=== PATIENT | male | born 1940 | race Caucasian/White ===

== ENCOUNTER 2023-11-03 09:37 | Emergency (ER) | payer MEDICARE ==
[~2023-11-03] VITALS: Ht 170.2 cm; Wt 81.6 kg
[2023-11-03 09:37] VITALS: BP_SYST 165; PULSE 68; RESP 19; TEMP 97.2; O2SAT 100
[2023-11-03] MEDS ORDERED: iohexoL 350 mgI/mL, 100 ML INFUS..BTL IV ONE (09:50)
[2023-11-03 10:22] LABS: BASOPHILS % (AUTO) 0.3 % (0.0-2.0); EOSINOPHILS # (AUTO) 0.2 K/uL (0.0-0.4); EOSINOPHILS % (AUTO) 3.5 % (0.0-4.0); HEMATOCRIT 35.8 % (36-54); HEMOGLOBIN 12.4 g/dL (14.0-18.0); LYMPHOCYTES # (AUTO) 1.5 K/uL (1.0-5.5); LYMPHOCYTES % (AUTO) 26.8 % (20.5-51.5); MEAN CORPUSCULAR HEMOGLOBIN 31 pg (27-31); MEAN CORPUSCULAR HGB CONC 35 % (32-36); MEAN CORPUSCULAR VOLUME 89 fL (79.0-98.0); MONOCYTES # (AUTO) 0.5 K/uL (0.0-1.0); MONOCYTES % (AUTO) 9.4 % (1.7-9.3); NEUTROPHILS # (AUTO) 3.4 K/uL (1.8-7.7); PLATELET COUNT (AUTO) 224 K/uL (130-430); RED BLOOD CELL COUNT(AUTO) 4.03 MIL/uL (4.2-6.2); RED CELL DISTRIBUTION WIDTH 13.8 % (9.0-15.0); WHITE BLOOD COUNT (AUTO) 5.7 K/uL (4.8-10.8)
[2023-11-03 10:42] LABS: INR 1.1 (0.80-1.20); PROTHROMBIN TIME 11.6 SECS (9.5-12.5)
[2023-11-03 10:43] LABS: ANION GAP 7 (5-15); CALCIUM 8.8 mg/dL (8.4-11.0); CARBON DIOXIDE 24 mmol/L (23-29); CHLORIDE 101 mmol/L (98-107); CREATININE 0.86 mg/dL (0.55-1.30); GLUCOSE 161 mg/dL (74-106); SODIUM SERUM 132 mmol/L (136-145); UREA NITROGEN, BLOOD 11 mg/dL (8-21)
[2023-11-03 10:49] LABS: ALANINE AMINOTRANSFERASE 31 U/L (12-78); ALBUMIN 3.4 g/dL (3.4-4.8); ASPARTATE AMINOTRANSFERASE 15 U/L (10-37); BILIRUBIN,DIRECT 0.1 mg/dL (0.0-0.3); CHOLESTEROL 150 mg/dL (<200); HDL CHOLESTEROL 40 mg/dL (>45); LIPASE 43 U/L (16-77); TOTAL BILIRUBIN 0.3 mg/dL (0.0-1.0); TOTAL PROTEIN, SERUM 6.5 g/dL (6.4-8.3); TRIGLYCERIDES 178 mg/dL (30-150)
[2023-11-03] MEDS ORDERED: ASPIRIN 81 MG TAB.CHEW PO ONE (11:00)
[2023-11-03] MEDS ORDERED: ATORVASTATIN 20 MG TABLET PO ONE (11:00)
[2023-11-03] MEDS ORDERED: CLOPIDOGREL BISULFATE 75 MG TABLET PO ONE (11:00)
[2023-11-03 11:57] LABS: COVID19 ANTIGEN SOFIA FIA NEGATIVE (NEGATIVE)
[2023-11-03 11:58] LABS: INFLUENZA TYPE A Negative (NEGATIVE); INFLUENZA TYPE B NEGATIVE (NEGATIVE)
[2023-11-03 12:26] LABS: BILIRUBIN,URINE NEGATIVE (NEGATIVE); BLOOD, URINE NEGATIVE (NEGATIVE); CLARITY/URINE CLEAR (CLEAR); COLOR,URINE YELLOW (YELLOW); GLUCOSE,URINE NEGATIVE (NEGATIVE); KETONES,URINE NEGATIVE (NEGATIVE); LEUKOCYTE ESTERASE ,URINE NEGATIVE (NEGATIVE); NITRITE, URINE NEGATIVE (NEGATIVE); PH,URINE 7.5 (5.0-8.0); PROTEIN URINE NEGATIVE (NEGATIVE); UROBILINOGEN,URINE 0.2 (0.2-1.0)
[2023-11-03 12:46] LABS: BARBITURATE, URINE NEGATIVE (NEG <=200); BENZODIAZEPINE, URINE NEGATIVE (NEG <=150); CANNABINOID, URINE NEGATIVE (NEG <=50); COCAINE, URINE NEGATIVE (NEG <=150); METHAMPHETAMINES SCREEN,URINE NEGATIVE (NEG <=500); OPIATE, URINE NEGATIVE (NEG <=100); PHENCYCLIDINE SCREEN,URINE NEGATIVE (NEG <=25); URINE AMPHETAMINE NEGATIVE (NEG <=500); URINE METHADONE NEGATIVE (NEG <=200); URINE OXYCODONE SCREEN NEGATIVE (NEG <=100)
[2023-11-03 12:47] LABS: UR TRICYCLIC ANTIDEPRESSANTS NEGATIVE (NEG <=300)
[2023-11-03 13:13] LABS: HEMOGLOBIN A1C 7.51 % (<5.7)
[2023-11-03 14:12] VITALS: BP_SYST 149; PULSE 55; RESP 16; TEMP 96.9; O2SAT 99
== END 2023-11-03 14:00 | disposition short-term general hospital (02) ==
LOC: SED 09:37
DX: I63.9 Cerebral infarction, unspecified (principal); I65.02 Occlusion and stenosis of left vertebral artery; E11.9 Type 2 diabetes mellitus without complications; I10 Essential (primary) hypertension; R20.2 Paresthesia of skin; H53.8 Other visual disturbances; R47.81 Slurred speech; Z79.899 Other long term (current) drug therapy; Z20.822 Contact with and (suspected) exposure to COVID-19
CPT/HCPCS: 99291; 70496; 71045; 87426; 80061; 80307; 80076; 80048; 83037; 83880; 83690; 85025; 85610; 85730; 86886; 86900; 86901; 84484; 36415; 93005; 70498; 87804 ×2; 81003; 70450; 81001; 76376; Q9967